=== PATIENT | male | born 1970 | race Caucasian/White ===

== ENCOUNTER 2018-02-05 07:23 | Observation (INO) ==
[2018-02-05 08:10] LABS: Baso % (Auto) 1.2 % (0.0-2.0); Eos # (Auto) 0.2 th/mm3 (0.0-0.4); Eos % (Auto) 4.6 % (0.0-4.0); Hematocrit 44.4 % (39.0-51.0); Hemoglobin 15.4 gm/dL (13.0-17.0); Lymph # (Auto) 1.7 th/mm3 (1.0-4.8); Lymph % (Auto) 48.7 % (9.0-44.0); Mean Corpuscular HGB Conc 34.7 % (32.0-36.0); Mean Corpuscular Hemoglobin 33.9 pg (27.0-34.0); Mean Corpuscular Volume 97.7 fL (80.0-100.0); Mean Platelet Volume 8.3 fL (7.0-11.0); Mono # (Auto) 0.3 th/mm3 (0.0-0.9); Mono % (Auto) 9.7 % (0.0-8.0); Neut # (Auto) 1.3 th/mm3 (1.8-7.7); Neut % (Auto) 35.8 % (16.0-70.0); Platelet Count 121 th/mm3 (150-450); Red Blood Count 4.54 mil/mm3 (4.50-5.90); Red Cell Distribution Width 14.5 % (11.6-17.2); White Blood Count 3.5 th/mm3 (4.0-11.0)
--- NOTE | 2018-02-05 08:12 | XR ---
EXAM DATE: 02/05/2018 8:06 AM EST AGE/SEX: 47 years / Male INDICATIONS: Chest pain and pressure started last night CLINICAL DATA: This is the patient's initial encounter. Patient reports that signs and symptoms have been present for 1 day and indicates a pain score of 10/10. MEDICAL/SURGICAL HISTORY: None. None. COMPARISON: [facility] – [place], CHEST SINGLE AP, 12/22/2013. . FINDINGS: Portable AP view of the chest demonstrates a normal-sized cardiac silhouette. No effusion, consolidat ion, or pneumothorax is identified. The bones and soft tissues demonstrate no acute finding. EKG line s overlie the patient. CONCLUSION: No acute cardiopulmonary abnormality is identified. Electronically signed by: Bernard Foster MD 02/05/2018 8:11 AM EST
[2018-02-05] MEDS ORDERED: Sod Chloride 0.9% Inj 1,000 ML IV.SIG SCH (08:15)
[2018-02-05] MEDS ORDERED: Ketorolac Inj 30 MG/ML (IVP) Vial IV.PUSH ONE (08:15)
[2018-02-05] MEDS ORDERED: Aspirin 325 MG Tablet PO ONE (08:15)
--- NOTE | 2018-02-05 08:22 | ED ---
HPI General Chief Complaint: Chest Pain Stated Complaint: Chest Pain/Arm Numbness Complaint Time Seen by Provider: 02/05/18 08:15 Source: patient Mode of arrival: ambulatory Limitations: no limitations History of Present Illness HPI narrative: 47 yo M c/o retrosternal CP for approx 8 hours. onset occurred at rest yesterday evening around 11pm. Pain radiates to L hand. No shortness of breath. 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 + hx of "blood clot in fissure" of lungs, however, pt denies hx PE or usage of anticoagulation. Related Data Home Medications Medication Instructions Recorded Confirmed No Known Home Medications 02/05/18 02/05/18 Allergies Allergy/AdvReac Type Severity Reaction Status Date / Time bee venom protein (honey bee) Allergy Severe Unverified 10/18/16 22:27 penicillin G Allergy Severe Unverified 10/18/16 22:27 Review of Systems ROS: all other systems reviewed are negative [facility] Medical History Medical History Pulmonary embolism (Acute) Social History Social History Substance History: No History of Abuse Second Hand Smoke Exposure: No Smoking Status: Former smoker Tobacco Type: Cigarettes How Often Do You Have a Drink Containing Alcohol: Never Recent Travel in [facility] within the Last 8 Weeks: No Recent Out of Country Travel within the Last 8 Weeks: No Immunization History Tetanus Immunization: Unsure Exam Narrative Exam Narrative: GENERAL: 47-year-old male well-nourished well-developed mild distress due to pain SKIN: Focused skin assessment warm/dry. HEAD: Atraumatic. Normocephalic. EYES: Pupils equal and round. No scleral icterus. No injection or drainage. ENT: No nasal bleeding or discharge. Mucous membranes pink and moist. NECK: Trachea midline. No JVD. CARDIOVASCULAR: Regular rate and rhythm. No murmur appreciated. Minimal tenderness along the left anterior chest wall. RESPIRATORY: No accessory muscle use. Clear to auscultation. Breath sounds equal bilaterally. GASTROINTESTINAL: Abdomen soft, non-tender, nondistended. Hepatic and splenic margins not palpable. MUSCULOSKELETAL: No obvious deformities. No clubbing. No cyanosis. No edema. NEUROLOGICAL: Awake and alert. No obvious cranial nerve deficits. Motor grossly within normal limits. Normal speech. PSYCHIATRIC: Appropriate mood and affect; insight and judgment normal. Course Initial Documented Vital Signs Temperature 97.9 F 02/05/18 07:26 Pulse Rate 101 H 02/05/18 07:26 Respiratory Rate 18 02/05/18 07:26 Blood Pressure 177/132 H 02/05/18 07:26 Pulse Oximetry 95 02/05/18 07:26 Last Documented Vital Signs Temperature 97.9 F 02/05/18 16:00 Pulse Rate 57 L 02/05/18 16:00 Respiratory Rate 18 02/05/18 16:00 Blood Pressure 158/85 H 02/05/18 16:00 Pulse Oximetry 97 02/05/18 16:00 Medical Decision Making MDM Narrative Medical decision making narrative: EKG shows a sinus rhythm with a rate 85 with normal axis and intervals, no evidence of ischemic injury pattern PT denies having undergone stress test. There is concern for underlying coronary disease given paucity of evidence to suggest other etiology for cardiopulmonary disease based on work up today. Medical Screen Exam Complete: Yes Emergency Medical Condition: Yes Differential Diagnosis Differential Diagnosis: NSTEMI, unstable angina, coronary vasospasm, PE, PTX, aortic dissection, pericarditis, myocarditis, endocarditis, PNA, esophageal disease, aneurysm, musculoskeletal etiologies, anxiety, cocaine/sympathomimetic abuse Lab Data Result diagrams: 02/05/18 07:45 02/05/18 07:45 Lab Results 02/05/18 02/05/18 02/05/18 Range/Units 07:45 07:45 07:45 WBC 3.5 L (4.0-11.0) th/mm3 RBC 4.54 (4.50-5.90) mil/mm3 Hgb 15.4 (13.0-17.0) gm/dL Hct 44.4 (39.0-51.0) % MCV 97.7 (80.0-100.0) fL MCH 33.9 (27.0-34.0) pg MCHC 34.7 (32.0-36.0) % RDW 14.5 (11.6-17.2) % Plt Count 121 L (150-450) th/mm3 MPV 8.3 (7.0-11.0) fL Neut % (Auto) 35.8 (16.0-70.0) % Lymph % (Auto) 48.7 H (9.0-44.0) % [place] % (Auto) 9.7 H (0.0-8.0) % Eos % (Auto) 4.6 H (0.0-4.0) % Baso % (Auto) 1.2 (0.0-2.0) % Neut # (Auto) 1.3 L (1.8-7.7) th/mm3 Lymph # (Auto) 1.7 (1.0-4.8) th/mm3 [place] # (Auto) 0.3 (0.0-0.9) th/mm3 Eos # (Auto) 0.2 (0.0-0.4) th/mm3 Baso # (Auto) 0.0 (0.0-0.2) th/mm3 WBC Differential . Differential Comment Auto diff final PT 9.9 (9.8-11.6) sec INR 1.0 Ratio APTT 25.1 (23.4-31.7) sec D-Dimer Quant (PE/DVT) 1.14 H (0.00-0.50) mg/L FEU Sodium 141 (136-145) meq/L Potassium 4.0 (3.5-5.1) meq/L Chloride 111 H (98-107) meq/L Carbon Dioxide 22.0 (21.0-32.0) meq/L Anion Gap 8 (5-15) meq/L BUN 6 L (7-18) mg/dL Creatinine 0.77 (0.60-1.30) mg/dL Estimated GFR Greater than 89 (>89) mL/min Random Glucose 94 (74-106) mg/dL Calcium 8.4 L (8.5-10.1) mg/dL Total Bilirubin 0.4 (0.2-1.0) mg/dL AST 217 H (15-37) U/L ALT 129 H (12-78) U/L Alkaline Phosphatase 63 (45-117) U/L Total Creatine Kinase (39-308) U/L Troponin I Less than 0.02 L (0.02-0.05) ng/mL Total Protein 8.2 (6.4-8.2) g/dL Albumin 3.7 (3.4-5.0) g/dL 02/05/18 02/05/18 Range/Units 11:50 14:44 WBC (4.0-11.0) th/mm3 RBC (4.50-5.90) mil/mm3 Hgb (13.0-17.0) gm/dL Hct (39.0-51.0) % MCV (80.0-100.0) fL MCH (27.0-34.0) pg MCHC (32.0-36.0) % RDW (11.6-17.2) % Plt Count (150-450) th/mm3 MPV (7.0-11.0) fL Neut % (Auto) (16.0-70.0) % Lymph % (Auto) (9.0-44.0) % [place] % (Auto) (0.0-8.0) % Eos % (Auto) (0.0-4.0) % Baso % (Auto) (0.0-2.0) % Neut # (Auto) (1.8-7.7) th/mm3 Lymph # (Auto) (1.0-4.8) th/mm3 [place] # (Auto) (0.0-0.9) th/mm3 Eos # (Auto) (0.0-0.4) th/mm3 Baso # (Auto) (0.0-0.2) th/mm3 WBC Differential Differential Comment PT (9.8-11.6) sec INR Ratio APTT (23.4-31.7) sec D-Dimer Quant (PE/DVT) (0.00-0.50) mg/L FEU Sodium (136-145) meq/L Potassium (3.5-5.1) meq/L Chloride (98-107) meq/L Carbon Dioxide (21.0-32.0) meq/L Anion Gap (5-15) meq/L BUN (7-18) mg/dL Creatinine (0.60-1.30) mg/dL Estimated GFR (>89) mL/min Random Glucose (74-106) mg/dL Calcium (8.5-10.1) mg/dL Total Bilirubin (0.2-1.0) mg/dL AST (15-37) U/L ALT (12-78) U/L Alkaline Phosphatase (45-117) U/L Total Creatine Kinase 74 73 (39-308) U/L Troponin I Less than 0.02 L Less than 0.02 L (0.02-0.05) ng/mL Total Protein (6.4-8.2) g/dL Albumin (3.4-5.0) g/dL Imaging Data Radiologist's impression: Chest X-Ray 02/05/18 00:00 CONCLUSION: No acute cardiopulmonary abnormality is identified. Chest CTA 02/05/18 08:59 CONCLUSION: 1. No evidence of pulmonary embolism. 2. No focal or acute intrathoracic disease. Myocardial Perfusion Scan Nuc Med 02/05/18 15:27 CONCLUSION: 1. No significant stress-induced ischemia. 2. Left ventricular ejection fraction within normal limits. 3. Old, small apical infarct. Discharge Plan Discharge Disposition Patient Disposition: 30 Still Patient Discharge Condition Condition: Stable Discharge Order Discharge Orders: Discharge Order (Routine); Ordered 02/05/18 Ordered By: Carlos Donaldson ED Use Only Admit Order (Routine); Ordered 02/05/18 Ordered By: Ajit Keita Physicians Team ED Provider: Ajit Keita Primary Care Provider: Primary Care Anuel,Maryam Attending Provider: Chaitanya Dubose Status ED Status: Left Department Discharge Information Discharge Date/Time: 02/05/18 12:03
[2018-02-05 08:23] LABS: Activated Partial Thrombo Time 25.1 sec (23.4-31.7); Prothrombin Time 9.9 sec (9.8-11.6)
[2018-02-05 08:24] LABS: D-Dimer 1.14 mg/L FEU (0.00-0.50)
[2018-02-05 08:34] LABS: Albumin 3.7 g/dL (3.4-5.0); Anion Gap 8 meq/L (5-15); Aspartate Aminotransferase 217 U/L (15-37); Blood Urea Nitrogen 6 mg/dL (7-18); Calcium 8.4 mg/dL (8.5-10.1); Chloride 111 meq/L (98-107); Glomerular Filtration Rate Greater Than 89 mL/min (>89); Glucose,Random 94 mg/dL (74-106); Sodium 141 meq/L (136-145)
[2018-02-05 08:35] LABS: Alanine Aminotransferase 129 U/L (12-78)
[2018-02-05 08:38] LABS: Alkaline Phosphatase 63 U/L (45-117); Total Protein 8.2 g/dL (6.4-8.2)
--- NOTE | 2018-02-05 10:18 | CT ---
EXAM DATE: 02/05/2018 10:04 AM EST AGE/SEX: 47 years / Male INDICATIONS: Substernal chest pain today. CLINICAL DATA: This is the patient's initial encounter. Patient reports that signs and symptoms have been present for 1 day and indicates a pain score of 5/10. MEDICAL/SURGICAL HISTORY: . pulmonary embolism None. RADIATION DOSE: 14.90 CTDI (mGy) COMPARISON: [facility] – [place], CHEST 1V SINGLE AP, 02/05/2018. . TECHNIQUE: Volumetric scanning was performed using a multi-row detector CT scanner during bolus infu víctor of 73 ml Omnipaque 350 (iohexol) nonionic water-soluble contrast as a single exam dose. The nadine a was post processed with a variety of visualization algorithms including full volume maximum intensi ty projection and sliding thin slab reformation. Using automated exposure control and adjustment of t he mA and/or kV according to patient size, radiation dose was kept as low as reasonably achievable to obtain optimal diagnostic quality images. DICOM format image data is available electronically for r eview and comparison. FINDINGS: Pulmonary Arteries: No filling defects are seen in the pulmonary arteries out to the subsegmental ve ssels. The left and right pulmonary arteries are normal in diameter. Lung: No infiltrates seen. Effusion: None. Mediastinum: No evidence of mediastinal or hilar adenopathy. Other: The axilla is unremarkable. CONCLUSION: 1. No evidence of pulmonary embolism. 2. No focal or acute intrathoracic disease. Electronically signed by: Rishi Eubanks MD 02/05/2018 10:17 AM EST
[2018-02-05] MEDS ORDERED: Morphine Inj 4 MG/ML Vial IV.PUSH ONE (10:56)
[2018-02-05 12:40] LABS: Creatine Kinase 74 U/L (39-308)
--- NOTE | 2018-02-05 13:09 | P.HPCA ---
History of Present Illness Primary Care Physician: No Primary Care Physician Chief Complaint: Chest pain History of Present Illness: This is a 47-year-old male with history of tobacco abuse presents to ED with complaint of developing a discomfort in his chest around 10:00 last evening. He was at home when he began. Describes as a central pressure. He was short of breath, diaphoretic, nauseous. Those symptoms have resolved however the discomfort is still present. States the pain is worse than a 10 out of 10 at time of examination. Found nothing to worsen or improve it at home. Denies history of CAD and cannot recall having having a cardiac workup. However upon review of records he had a nonischemic risk protocol ETT in 2009. Patient continues to smoke cigarettes. Denies history of hypertension, hyperlipidemia, diabetes, CAD, and cannot recall any by his family having CAD. Denies hypertension, hyperlipidemia, diabetes, and CAD. He smokes approximately 1 pack of series daily for 10 years. He has on average 6 beers 2-3 times a month. States he had no marijuana and about a year. States he has not used other illicit drugs. Denies family history of CAD. - Diagnosis (1) Chest pain (2) Tobacco abuse (3) Elevated liver enzymes Review of Systems General: Patient denies fevers, chills, and recent travel. HEENT: Patient denies headache, sore throat, difficulty swallowing. Cardiovascular: Has the chest discomfort as mentioned above. Denies sensation of heart beating rapidly or irregularly. No syncope. He was diaphoretic. Respiratory: He was short of breath. Denies inspirational chest discomfort. Denies coughing wheezing or hemoptysis. GI: He was nauseous. Patient denies vomiting, diarrhea, abdominal pain, bloody stools. Musculoskeletal: Patient denies joint pain or edema. Denies calf pain or edema. Neurovascular: Patient denies numbness, tingling, weakness in extremities. Denies headache. Endocrine: Denies polyuria and polydipsia. Hematologic: Denies easy bruising. Skin: Denies rash or itching. PMFSH - History History Provided By: Patient - Medical History Medical History: Medical History (Last Updated 02/05/18 @ 07:42 by Suman Ball) Pulmonary embolism - Tobacco History Second Hand Smoke Exposure: No Tobacco Use In Past 30 Days: Yes Smoking Status: Former smoker Tobacco Type: Cigarettes - Alcohol History How Often Do You Have a Drink Containing Alcohol: Never - Substance Use History Substance History: No History of Abuse - Travel History Recent Travel in the [place] Within the Last 8 Weeks: No Recent Travel Out of the Country Within the Last 8 Weeks: No - Immunization History Tetanus Immunization: Unsure Medications and Allergies Active Medications: Active Medications Aspirin (Aspirin) 325 mg PO DAILY MARCELO Sodium Chloride (Ns Flush) 2 ml IV.FLUSH BID MARCELO Sodium Chloride (Ns Flush) 2 ml IV.FLUSH PRN PRN PRN Reason: FLUSH AFTER USING IV ACCESS Allergies Allergy/AdvReac Type Severity Reaction Status Date / Time bee venom protein (honey bee) Allergy Severe Unverified 10/18/16 22:27 penicillin G Allergy Severe Unverified 10/18/16 22:27 Home Medications Medication Instructions Recorded Confirmed Type No Known Home Medications 02/05/18 02/05/18 History Exam Vital signs: Vital Signs 02/05/18 07:26 02/05/18 07:40 02/05/18 08:36 Temperature 97.9 F Pulse Rate 101 H 92 H 84 Respiratory Rate 18 18 17 Blood Pressure 177/132 H 190/70 H 130/86 Pulse Oximetry 95 95 97 02/05/18 10:36 02/05/18 12:00 Temperature Pulse Rate 85 84 Respiratory Rate 17 17 Blood Pressure 147/90 H 156/75 H Pulse Oximetry 98 96 Intake & Output 02/04/18 02/05/18 02/05/18 18:59 06:59 18:59 Intake Total 1000 / 1000 Balance 1000 / 1000 Weight 81.647 kg Intake: IV 1000 / 1000 NS Inj 1,000 ML @ 1000 mls/hr 1000 / 1000 IV.SIG BOLUS MARCELO Rx#:[id number] Narrative: GENERAL: This is a well-nourished, well-developed patient, in no apparent distress. Patient speaks in clear complete sentences. Patient is pleasant. HEENT: Head is atraumatic and normocephalic. Neck is supple without lymphadenopathy and trachea is midline. No JVD or carotid bruits. CARDIOVASCULAR: Regular rate and rhythm without murmurs, gallops, or rubs. RESPIRATORY: Clear to auscultation. Breath sounds equal bilaterally. No wheezes , rales, or rhonchi. Chest wall is nontender. No use of accessory muscles. GASTROINTESTINAL: Abdomen is nontender, nondistended. Abdomen soft. No obvious pulsatile mass or bruit. No CVA tenderness. Strong femoral pulses bilaterally. Normal bowel sounds in all quadrants. MUSCULOSKELETAL: Patient is moving upper and lower extremities freely. No calf tenderness or edema, no Homans sign. Strong pulses in upper and lower extremities. NEUROLOGICAL: Patient is alert and oriented. Cranial nerves 2-12 are grossly intact. No focal deficits and speech is clear. SKIN: No rash and turgor is normal. Results 02/05/18 07:45 02/05/18 07:45 Cardiac Enzymes 02/05/18 02/05/18 Range/Units 07:45 11:50 AST 217 H (15-37) U/L Troponin I Less than 0.02 L Less than 0.02 L (0.02-0.05) ng/mL Coagulation 02/05/18 Range/Units 07:45 PT 9.9 (9.8-11.6) sec APTT 25.1 (23.4-31.7) sec CBC 02/05/18 Range/Units 07:45 WBC 3.5 L (4.0-11.0) th/mm3 RBC 4.54 (4.50-5.90) mil/mm3 Hgb 15.4 (13.0-17.0) gm/dL Hct 44.4 (39.0-51.0) % Plt Count 121 L (150-450) th/mm3 Neut # (Auto) 1.3 L (1.8-7.7) th/mm3 Lymph # (Auto) 1.7 (1.0-4.8) th/mm3 [place] # (Auto) 0.3 (0.0-0.9) th/mm3 Eos # (Auto) 0.2 (0.0-0.4) th/mm3 Baso # (Auto) 0.0 (0.0-0.2) th/mm3 Comprehensive Metabolic Panel 02/05/18 Range/Units 07:45 Sodium 141 (136-145) meq/L Potassium 4.0 (3.5-5.1) meq/L Chloride 111 H (98-107) meq/L Carbon Dioxide 22.0 (21.0-32.0) meq/L BUN 6 L (7-18) mg/dL Creatinine 0.77 (0.60-1.30) mg/dL Calcium 8.4 L (8.5-10.1) mg/dL AST 217 H (15-37) U/L ALT 129 H (12-78) U/L Alkaline Phosphatase 63 (45-117) U/L Total Protein 8.2 (6.4-8.2) g/dL Albumin 3.7 (3.4-5.0) g/dL Intake and Output 02/04/18 02/05/18 02/05/18 22:59 06:59 14:59 Intake Total 1000 / 1000 Balance 1000 / 1000 Intake: IV 1000 / 1000 NS Inj 1,000 ML @ 1000 mls/hr 1000 / 1000 IV.SIG BOLUS MARCELO Rx#:[id number] Other: Weight 81.647 kg Patient Weight 02/06/18 06:59 Weight 81.647 kg - Imaging and Cardiology Imaging: Impressions Chest X-Ray 02/05/18 00:00 CONCLUSION: No acute cardiopulmonary abnormality is identified. Chest CTA 02/05/18 08:59 CONCLUSION: 1. No evidence of pulmonary embolism. 2. No focal or acute intrathoracic disease. EKG interpretations - EKG EKG shows: sinus rhythm (First 2 EKGs are sinus rhythm without significant ST segment depressions or elevations.) Caprini VTE Risk Assessment Caprini VTE Risk Assessment: No/Low Risk (score <= 1) Caprini Risk Assessment Model: Point Value = 1 Point Value = 2 Point Value = 3 Point Value = 5 Age 41-60 Minor surgery BMI > 25 kg/m2 Swollen legs Varicose veins or History of unexplained or recurrent spontaneous Oral contraceptives or hormone replacement Sepsis (< 1 month) Serious lung disease, including pneumonia (< 1 month) Abnormal pulmonary function Acute myocardial infarction Congestive heart failure (< 1 month) History of inflammatory bowel disease Medical patient at bed rest Age 61-74 Arthroscopic surgery Major open surgery (> 45 min) Laparoscopic surgery (> 45 min) Malignancy Confined to bed (> 72 hours) Immobilizing plaster cast Central venous access Age >= 75 History of VTE Family history of VTE Factor V Leiden Prothrombin [id number] Lupus anticoagulant Anticardiolipin antibodies Elevated serum homocysteine Heparin-induced thrombocytopenia Other congenital or acquired thrombophilia Stroke (< 1 month) Elective arthroplasty Hip, pelvis, or leg fracture Acute spinal cord injury (< 1 month) Prophylaxis Regimen: Total Risk Factor Score Risk Level Prophylaxis Regimen 0-1 Low Early ambulation 2 Moderate Order ONE of the following: *Sequential Compression Device (SCD) *Heparin 5000 units SQ BID 3-4 Higher Order ONE of the following medications: *Heparin 5000 units SQ TID *Enoxaparin/Lovenox 40 mg SQ daily (WT < 150 kg, CrCl > 30 mL/min) *Enoxaparin/Lovenox 30 mg SQ daily (WT < 150 kg, CrCl > 10-29 mL/min) *Enoxaparin/Lovenox 30 mg SQ BID (WT < 150 kg, CrCl > 30 mL/min) AND/OR *Sequential Compression Device (SCD) 5 or more Highest Order ONE of the following medications: *Heparin 5000 units SQ TID (Preferred with Epidurals) *Enoxaparin/Lovenox 40 mg SQ daily (WT < 150 kg, CrCl > 30 mL/min) *Enoxaparin/Lovenox 30 mg SQ daily (WT < 150 kg, CrCl > 10-29 mL/min) *Enoxaparin/Lovenox 30 mg SQ BID (WT < 150 kg, CrCl > 30 mL/min) AND *Sequential Compression Device (SCD) Assessment and Plan - Assessment (1) Chest pain Code(s): R07.9 - Chest pain, unspecified Status: Acute (2) Tobacco abuse Code(s): Z72.0 - Tobacco use Status: Acute (3) Elevated liver enzymes Code(s): R74.8 - Abnormal levels of other serum enzymes Status: Acute - Plan * Chest pain: Patient symptoms seem atypical, his discomfort has been present for greater than 12 hours and first and now second troponin are negative. He was given IV morphine in the emergency department which states has helped a little bit but his discomfort is still present. He will be seen by Dr. Chaitanya Dubose of cardiology and chest pain center and will likely have a Mars protocol ETT. He will be discharged home if stress test is nonischemic with instructions to follow-up with PCP. Return to ED for interval issues. * Tobacco abuse: Patient counseled on importance of smoking cessation. * Elevated LFTs: Needs to stop alcohol consumption. He is to follow-up with PCP for reevaluation. Patient is stable at this time. He is agreeable to this plan. H&P: Quality - VTE Deep Vein Thrombosis/Pulmonary Embolism Present on Admission: No
--- NOTE | 2018-02-05 14:58 | ECG ---
Date Performed: 02/05/2018 Time Performed: 11:54:11 PTAGE: 47 years EKG: Sinus rhythm WITH SINUS ARRHYTHMIA NORMAL ECG No significant change from prior electrocardiogram. PREVIOUS TRACING : 02/05/2018 07.41 DOCTOR: Yomi Cosby Interpretating Date/Time 02/05/2018 14:57:03
[2018-02-05 15:58] LABS: Creatine Kinase 73 U/L (39-308)
[2018-02-05 17:26] VITALS: BP 158/85; PULSE 57; RESP 18; TEMP 97.9; O2SAT 97
[2018-02-05] MEDS ORDERED: Regadenoson Inj 0.4 MG/5 ML Syringe IV.PUSH ONE (17:27)
--- NOTE | 2018-02-05 19:06 | NM ---
EXAM DATE: 02/05/2018 6:56 PM EST AGE/SEX: 47 years / Male INDICATIONS:Angina. . Chest pain radiating to the left hand. CLINICAL DATA: This is the patient's initial encounter. Patient reports that signs and symptoms have been present for 1 day and indicates a pain score of 7/10. MEDICAL/SURGICAL HISTORY: . Pulmonary embolism. None. COMPARISON: No prior exams available for comparison. DOSE: 8.7 mCi Tc 99m Myoview at rest 26.9 mCi [id number] at stress 0.4 mg Lexiscan STRESS SYMPTOMS: Diaphoresis and hot. EJECTION FRACTION: 56 % TECHNIQUE: The patient underwent pharmacologic stress with infusion of prescribed dose. Continuous ECG tracing was monitored during stress. Gated SPECT imaging was performed after stress and conventi onal SPECT imaging was performed at rest. The examination was performed on a SPECT/CT scanner, both attenuation and non-corrected datasets were reviewed. FINDINGS: Distribution: The maximum perfused segment at stress is in the lateral wall. Perfusion Study: Old, small apical infarct. No significant reversible perfusion deficit demonstrate d.. Gated Study: There are intact wall motion and wall thickening without hypokinetic or dyskinetic segm ents. The ejection fraction is calculated at 56%. RISK CATEGORY: Intermediate (1-3 % Annual Mortality Rate) CONCLUSION: 1. No significant stress-induced ischemia. 2. Left ventricular ejection fraction within normal limits. 3. Old, small apical infarct. Electronically signed by: Bernard Whitehead MD 02/05/2018 7:04 PM EST
--- NOTE | 2018-02-05 20:06 | ECG ---
Date Performed: 02/05/2018 Time Performed: 07:41:55 PTAGE: 47 years EKG: Sinus rhythm WITH SINUS ARRHYTHMIA NORMAL ECG PREVIOUS TRACING :12/22/2013 @11.01 Since the previous tracing, no significant change noted DOCTOR: Bobby Sutton Interpretating Date/Time 02/05/2018 19:57:21
--- NOTE | 2018-02-06 08:09 | TR ---
Date Performed: 02/05/2018 Time Performed: 17:53:07 DOCTOR: Shannan Walden DRUG LIST: CLINICAL HISTORY: REASON FOR TEST: CHEST PAIN REASON FOR ENDING: OBSERVATION: CONCLUSION: Lexiscan stress test was performed under standard four minute protocol. Radionuclid e was injected one minute prior to ending the test. No electrocardiographic abormalities were present to suggest ischemia. Nuclear imaging and interpretation are pending. COMMENTS: Lexiscan stress test was performed under standard four minute protocol. Radionuclide was injected one minute prior to ending the test. No electrocardiographic abormalities were present t o suggest ischemia. Nuclear imaging and interpretation are pending.
[2018-02-06] MEDS ORDERED: Aspirin 325 MG Tablet PO SCH (09:00)
== END 2018-02-05 19:29 | disposition home or self-care (01) ==
LOC: NEPC 07:23 → NEDA 07:23 → NEPHCDU 12:09
PROVIDERS: ADMIT Internal Medicine Cardiovascular Disease; ATTEND Internal Medicine Cardiovascular Disease